=== PATIENT | male | born 1940 | race Caucasian/White ===

== ENCOUNTER → 2016-09-07 | Outpatient (CLI) | payer OTHER ==
[~2016-09-07] MED LIST: ADVIN25/60 INH; ASPCH81X PO; ASPI400T11; CALC-393 PO; GABA-113 PO; LEVO125T4 PO; PROSTAVAN; PROSTAVAN PO; TRAM-10 PO; VNTHFA/IN INH; [UNRECOGNIZED DRUG - OTHER]; calcium complete
--- NOTE | 2016-09-07 11:54 | DIAGNOSTIC IMAGING REPORT ---
RENAL ULTRASOUND CLINICAL HISTORY: Chronic renal insufficiency. COMPARISON STUDY: Renal ultrasound March 22, 2011 TECHNIQUE: Sonography of the kidneys and the urinary bladder was performed. FINDINGS: This exam is mildly compromised by suboptimal penetration. The right kidney measures 10.6 x 5.8 x 5.2 cm and the left measures 12.3 x 5.3 x 4.8 cm. There is no hydronephrosis. A few renal cysts are noted. Renal echogenicity, size and cortical thickness are normal. No calculi or solid masses are identified by sonography. Both ureteral jets were identified. IMPRESSION: 1. No hydronephrosis. 2. A few renal cysts. Otherwise, unremarkable sonographic appearance of the kidneys. 3. Study mildly compromised by suboptimal penetration. Electronically signed by: All Lopez M.D. 09/07/2016 11:53 AM Dictated Date/Time: 09/07/2016 11:51 AM
--- NOTE | 2016-09-07 12:36 | DIAGNOSTIC IMAGING REPORT ---
CERVICAL SPINE 3 VIEWS CLINICAL HISTORY: Cervical disc disease. FINDINGS: AP, lateral, and odontoid views of the cervical spine are obtained. No prior studies are available for comparison at the time of dictation. The skeletal structures are osteopenic. There is no radiographic evidence of fracture or malalignment. The odontoid process and lateral masses are intact as visualized. These are suboptimally assessed due to overlying bony structures. Vertebral body height and alignment are maintained throughout the cervical spine. There is straightening of the cervical lordosis with mild reversal centered at C5. The spinolaminar line is preserved. Anterior osteophytes are seen throughout. The spinous processes appear intact. There is moderate degenerative disc space narrowing seen at all cervical levels. Endplate sclerosis is noted at C4-C5. Degenerative narrowing and sclerosis are also seen at the atlantodental articulation. Posterior disc osteophyte complexes at C3-C4, C4-C5, C5-C6, and C6-C7 likely contribute to mild acquired compromise of the central canal. The prevertebral soft tissues are within normal limits. Partially imaged apical lung parenchyma appears clear. IMPRESSION: 1. No acute bony abnormality is seen involving the cervical spine. 2. Osteopenia and spondylotic change as above. Dictated: 09/07/2016 12:05 PM Transcribed: 09/07/2016 12:36 PM STEVE_[email or web address] Electronically signed by: Brandin Noel M.D. 09/07/2016 1:09 PM Dictated Date/Time: 09/07/2016 12:05 PM
== END | disposition home or self-care (01) ==
LOC: C.ULTR 10:32
PROVIDERS: ATTEND Nurse Practitioner
DX: N18.9 Chronic kidney disease, unspecified (principal); M85.80 Other specified disorders of bone density and structure, unspecified site; M43.10 Spondylolisthesis, site unspecified

== ENCOUNTER → 2016-10-11 | Outpatient (CLI) | payer OTHER ==
[~2016-10-11] MED LIST changes: -CALC-393 PO; -PROSTAVAN PO
[2016-10-11 09:29] LABS: PATIENT HEIGHT 177.8 cm
[2016-10-11 12:30] LABS: BASO % 0.4 %; BASO ABS # 0.03 K/uL (0-0.2); COMPLETE YES; EOS % 2.9 %; HEMATOCRIT 42.6 % (42-52); IG% 0.3 %; LYMPH % 17.5 %; LYMPH ABS # 1.38 K/uL (1.2-3.4); MEAN CELL VOLUME 96.6 fL (80-100); MEAN CORPUSCULAR HEMOGLOBIN 32.4 pg (25-34); MEAN CORPUSCULAR HGB CONC 33.6 g/dl (32-36); MEAN PLATELET VOLUME 10.6 fL (7.4-10.4); MONO % 7.4 %; NEUT % 71.5 %; PLATELET COUNT 240 K/uL (130-400); RED BLOOD COUNT 4.41 M/uL (4.7-6.1); WHITE BLOOD COUNT 7.88 K/uL (4.8-10.8)
[2016-10-11 12:50] LABS: URINE APPEARANCE CLEAR (CLEAR); URINE BILIRUBIN NEG (NEG); URINE COLOR YELLOW; URINE EPITHELIAL CELL AUTO 0-5 /lpf (0-5); URINE NITRITE NEG (NEG); URINE PH 5.5 (4.5-7.5); URINE SPECIFIC GRAVITY 1.015 (1.000-1.030); UROBILINOGEN NEG (NEG)
[2016-10-11 12:59] LABS: MANUAL MICROSCOPIC REQUIRED? NO; REVIEW REQ? NO
[2016-10-11 13:04] LABS: URINE PROTIEN/CREAT RATIO 0.1 (0-0.2); URINE TOTAL PROTEIN 9.5 mg/dl (0-11.9)
[2016-10-11 13:28] LABS: BUN/CREATININE RATIO 14.9 (10-20); CALCIUM 8.9 mg/dl (8.5-10.1); CREATININE 1.6 mg/dl (0.60-1.40); POTASSIUM 4.2 mmol/L (3.5-5.1)
[2016-10-11 13:39] LABS: ALB/GLOB RATIO 1.1 (0.9-2); CHOLESTEROL/HDL RATIO 3.2; THYROID STIMULATING HORMONE 2.57 uIu/ml (0.300-4.500)
[2016-10-11 17:59] LABS: CREATININE 1.6 mg/dl (0.6-1.4)
[2016-10-11 18:21] LABS: URINE TOTAL PROTEIN 5.2 mg/dl (0-11.9)
== END | disposition home or self-care (01) ==
LOC: C.LABBFT 08:58
PROVIDERS: ATTEND Internal Medicine Nephrology
DX: E03.9 Hypothyroidism, unspecified (principal); F17.200 Nicotine dependence, unspecified, uncomplicated; J44.9 Chronic obstructive pulmonary disease, unspecified; N18.3 Chronic kidney disease, stage 3 (moderate); M54.2 Cervicalgia

== ENCOUNTER → 2017-03-09 | Outpatient (CLI) | payer OTHER ==
[2017-03-09 12:19] LABS: HEMATOCRIT 41.1 % (42-52); MEAN CELL VOLUME 97.6 fL (80-100); MEAN CORPUSCULAR HEMOGLOBIN 32.1 pg (25-34); MEAN CORPUSCULAR HGB CONC 32.8 g/dl (32-36); MEAN PLATELET VOLUME 10.3 fL (7.4-10.4); PLATELET COUNT 244 K/uL (130-400); RED BLOOD COUNT 4.21 M/uL (4.7-6.1); WHITE BLOOD COUNT 8.58 K/uL (4.8-10.8)
[2017-03-09 12:46] LABS: BLOOD UREA NITROGEN 29 mg/dl (7-18); BUN/CREATININE RATIO 19.3 (10-20); CALCIUM 9.2 mg/dl (8.5-10.1); CARBON DIOXIDE 28 mmol/L (21-32); CHLORIDE 110 mmol/L (98-107); CHOLESTEROL 166 mg/dl (0-200); GLUCOSE 92 mg/dl (70-99); POTASSIUM 4.6 mmol/L (3.5-5.1); SODIUM 142 mmol/L (136-145); TRIGLYCERIDES 46 mg/dl (0-150); VERY LOW DENSITY LIPOPROT CALC 9 mg/dl
[2017-03-09 12:52] LABS: CHOLESTEROL/HDL RATIO 3.1; HDL CHOLESTEROL 54 mg/dl; LDL CHOLESTEROL CALCULATED 103 mg/dl; PROSTATE SPECIFIC ANTIGEN 0.805 ng/ml (0.000-4.000)
== END | disposition home or self-care (01) ==
LOC: C.LABBFT 09:51
PROVIDERS: ATTEND Nurse Practitioner
DX: M54.2 Cervicalgia (principal); N18.3 Chronic kidney disease, stage 3 (moderate); J44.9 Chronic obstructive pulmonary disease, unspecified; F17.200 Nicotine dependence, unspecified, uncomplicated; E03.9 Hypothyroidism, unspecified; Z12.5 Encounter for screening for malignant neoplasm of prostate

== ENCOUNTER → 2017-04-10 | Outpatient (CLI) | payer OTHER ==
--- NOTE | 2017-04-10 13:01 | DIAGNOSTIC IMAGING REPORT ---
BILATERAL LOWER EXTREMITY ARTERIAL DOPPLER ULTRASOUND CLINICAL HISTORY: Lower extremity claudication. Lower extremity pain. COMPARISON STUDY: No previous studies for comparison. FINDINGS: The right ankle to brachial index measured 1.01 when using posterior tibial artery and 0.96 when using the dorsalis pedis. The left ankle to brachial index measured 1.04 when using posterior tibial artery and 0.98 when using the dorsalis pedis. There is triphasic flow within the bilateral common and superficial femoral arteries. There is biphasic flow within the bilateral popliteal, anterior tibial, posterior tibial, peroneal and dorsalis pedis vessels. There is no evidence for hemodynamically significant stenosis. Minimal atherosclerotic plaque is noted. IMPRESSION: 1. Unremarkable bilateral lower extremity arterial Doppler ultrasound. No evidence of a hemodynamically significant stenosis. 2. Normal bilateral ankle to brachial indices. Electronically signed by: All Lopez M.D. 04/10/2017 1:00 PM Dictated Date/Time: 04/10/2017 12:55 PM
== END | disposition home or self-care (01) ==
LOC: C.ULTR 11:43
PROVIDERS: ATTEND Physician Assistant
DX: I73.9 Peripheral vascular disease, unspecified (principal)

== ENCOUNTER → 2017-10-09 | Outpatient (CLI) | payer OTHER ==
[~2017-10-09] MED LIST changes: +GABA-1220 PO; -LEVO125T4 PO; +LEVO125T5 PO; +VITBC PO
--- NOTE | 2017-10-09 12:22 | DIAGNOSTIC IMAGING REPORT ---
LUNG SCREENING, LOW DOSE CLINICAL HISTORY: Tobacco history dyspnea COMPARISON STUDY: No previous studies for comparison. CT DOSE: 92.50 mGy.cm TECHNIQUE: Low-dose helical CT was acquired without intravenous contrast from lung apices to bases and reconstructed at 2.5 mm every 2 mm. CAD was utilized for this study. A dose lowering technique was utilized adhering to the principles of ALARA. FINDINGS: Mild emphysematous change mild bibasilar atelectasis. No significant nodularity. No significant mediastinal or hilar adenopathy. IMPRESSION: Mild emphysematous change. Otherwise negative study.[facility] CAD FINDINGS: Overall Lung RADS Category: 1 Lung RADS Management Recommendation: Continue annual lung cancer screening. Lung RADS Follow Up Date: 2018-10-09 Lung RADS Nodule ID: The above report was generated using voice recognition software. It may contain grammatical, syntax or spelling errors. Electronically signed by: Armand Bain M.D. 10/09/2017 12:20 PM Dictated Date/Time: 10/09/2017 12:15 PM
== END | disposition home or self-care (01) ==
LOC: C.CTS 11:32
PROVIDERS: ATTEND Nurse Practitioner
DX: Z87.891 Personal history of nicotine dependence (principal); F17.210 Nicotine dependence, cigarettes, uncomplicated

== ENCOUNTER → 2017-11-15 | Outpatient (CLI) | payer OTHER ==
[2017-11-16 14:40] LABS: ANA SCREEN TC 249X NEGATIVE (NEGATIVE)
== END | disposition home or self-care (01) ==
LOC: C.LABBFT 07:34
PROVIDERS: ATTEND Nurse Practitioner
DX: M25.40 Effusion, unspecified joint (principal)

== ENCOUNTER → 2017-11-23 | Outpatient (CLI) | payer OTHER ==
--- NOTE | 2017-11-23 15:55 | DIAGNOSTIC IMAGING REPORT ---
R HAND MIN 3 VIEWS ROUTINE, L HAND MIN 3 VIEWS ROUTINE HISTORY: 77 years-old Male R70.0 Elevated sedimentation rateBoth COMPARISON: None available TECHNIQUE: 3 views of the bilateral hands for a total of 6 images FINDINGS: RIGHT: Mild radiocarpal, triscaphe and first carpometacarpal osteoarthritis. 3 mm negative ulnar variance. Mild joint space narrowing with subchondral sclerosis and marginal osteophytosis is seen throughout the interphalangeal joints to lesser extent within the metacarpophalangeal joints. The bones are mildly demineralized. No erosive changes identified. No acute fracture or dislocation. LEFT: No acute fracture or dislocation. The scapholunate interval is widened, 5 mm. 4 mm negative ulnar variance. Mild to moderate radiocarpal, first carpometacarpal and first metacarpophalangeal osteoarthritis with mild triscaphe and mild multidigit interphalangeal degenerative changes. No erosive arthropathy, acute fracture or subluxation. IMPRESSION: 1. No acute fracture or dislocation. 2. No evidence of erosive arthropathy. 3. Osteoarthritis of the bilateral hands as above. 4. Widening of the left scapholunate interval compatible with scapholunate ligament tear. The above report was generated using voice recognition software. It may contain grammatical, syntax or spelling errors. Electronically signed by: Donell Duran M.D. 11/23/2017 3:53 PM Dictated Date/Time: 11/23/2017 3:50 PM
== END | disposition home or self-care (01) ==
LOC: C.RAD1850 15:02
PROVIDERS: ATTEND Internal Medicine Rheumatology
DX: R70.0 Elevated erythrocyte sedimentation rate (principal); G62.9 Polyneuropathy, unspecified; M19.042 Primary osteoarthritis, left hand; M19.041 Primary osteoarthritis, right hand

== ENCOUNTER → 2017-11-28 | Outpatient (CLI) | payer OTHER | END | disposition home or self-care (01) | LOC: C.LAB1850 14:11 | PROVIDERS: ATTEND Internal Medicine Rheumatology | DX: G62.9 Polyneuropathy, unspecified (principal); R70.0 Elevated erythrocyte sedimentation rate; M35.3 Polymyalgia rheumatica ==

== ENCOUNTER → 2018-02-19 | Outpatient (CLI) | payer OTHER ==
[~2018-02-19] MED LIST changes: -ASPI400T11; +ASPI400T11 PO; +PRED10TA PO; +PRLSR20 PO; -TRAM-10 PO
== END | disposition home or self-care (01) ==
LOC: C.LAB1850 16:07
PROVIDERS: ATTEND Internal Medicine Rheumatology
DX: K21.9 Gastro-esophageal reflux disease without esophagitis (principal); R70.0 Elevated erythrocyte sedimentation rate; M35.3 Polymyalgia rheumatica; M06.4 Inflammatory polyarthropathy

== ENCOUNTER → 2018-03-16 | Outpatient (CLI) | payer OTHER ==
[2018-03-16 13:53] LABS: BLOOD UREA NITROGEN 30 mg/dl (7-18); CALCIUM 9.2 mg/dl (8.5-10.1); CARBON DIOXIDE 30 mmol/L (21-32); CHOLESTEROL 171 mg/dl (0-200); CREATININE 1.75 mg/dl (0.60-1.40); GLUCOSE 85 mg/dl (70-99); LDL CHOLESTEROL CALCULATED 81 mg/dl; POTASSIUM 4.1 mmol/L (3.5-5.1); SODIUM 142 mmol/L (136-145)
== END | disposition home or self-care (01) ==
LOC: C.LABBFT 08:02
PROVIDERS: ATTEND Nurse Practitioner
DX: I10 Essential (primary) hypertension (principal); E03.9 Hypothyroidism, unspecified; Z12.5 Encounter for screening for malignant neoplasm of prostate; M81.8 Other osteoporosis without current pathological fracture; E55.9 Vitamin D deficiency, unspecified

== ENCOUNTER 2022-12-26 06:21 | Observation (INO) ==
--- NOTE | 2022-11-24 12:23 | PAT Medication Instructions ---
Medication Instructions Date of Service November 24, 2022 Home Medications Medication Instructions Recorded furosemide 20 mg tablet (Lasix) 20 mg PO Q2D #45 tabs 10/16/20 omeprazole 20 mg capsule,delayed 20 mg PO TID #270 caps 10/28/21 release levothyroxine 125 mcg tablet 125 mcg PO QAM #96 tabs 04/27/22 gabapentin 600 mg tablet 600 mg PO .qhs #90 tabs 09/27/22 gabapentin 300 mg capsule 300 mg PO BID #180 caps 11/16/22 calcium carbonate 600 mg calcium (1,500 mg) tablet 600 mg PO QDL coenzyme Q10 100 mg capsule (CoQ-10) 200 mg PO QDL ferrous sulfate 325 mg (65 mg iron) tablet,delayed release 325 mg PO 3XWK Cell Hodge 1 tab PO QDL cholecalciferol (vitamin D3) 25 mcg (1,000 unit) capsule (Vitamin D3) 1,000 unit PO QDL docusate sodium 100 mg capsule 100 mg PO QDL PRN Constipation vitamin B complex 1 tab PO QDL furosemide 20 mg tablet (Lasix) 20 mg PO Q2D omeprazole 20 mg capsule,delayed release 20 mg PO TID levothyroxine 125 mcg tablet 125 mcg PO QAM gabapentin 600 mg tablet 600 mg PO .qhs gabapentin 300 mg capsule 300 mg PO BID atorvastatin 20 mg tablet 20 mg PO QDL fluticasone fur. 100 mcg-umeclid 62.5 mcg-vilant 25 mcg inhalat.powder (Trelegy Ellipta) 1 inh inhalation QAM meloxicam 7.5 mg tablet 7.5 mg PO QAM metoprolol succinate 25 mg tablet,extended release 24 hr 25 mg PO QDL tamsulosin 0.4 mg capsule 0.8 mg PO HS ASK your surgeon for instructions meloxicam 7.5 mg tablet 7.5 mg PO QAM STOP taking 2 weeks before surgery coenzyme Q10 100 mg capsule (CoQ-10) 200 mg PO QDL Cell Hodge 1 tab PO QDL DO NOT take the morning of surgery calcium carbonate 600 mg calcium (1,500 mg) tablet 600 mg PO QDL ferrous sulfate 325 mg (65 mg iron) tablet,delayed release 325 mg PO 3XWK cholecalciferol (vitamin D3) 25 mcg (1,000 unit) capsule (Vitamin D3) 1,000 unit PO QDL docusate sodium 100 mg capsule 100 mg PO QDL PRN Constipation (if needed) vitamin B complex 1 tab PO QDL furosemide 20 mg tablet (Lasix) 20 mg PO Q2D atorvastatin 20 mg tablet 20 mg PO QDL Take morning of surgery With a small sip of water, OTHERWISE NOTHING TO EAT OR DRINK AFTER MIDNIGHT: omeprazole 20 mg capsule,delayed release 20 mg PO TID levothyroxine 125 mcg tablet 125 mcg PO QAM gabapentin 300 mg capsule 300 mg PO BID fluticasone fur. 100 mcg-umeclid 62.5 mcg-vilant 25 mcg inhalat.powder (Trelegy Ellipta) 1 inh inhalation QAM metoprolol succinate 25 mg tablet,extended release 24 hr 25 mg PO QDL Take evening before surgery omeprazole 20 mg capsule,delayed release 20 mg PO TID gabapentin 600 mg tablet 600 mg PO .qhs gabapentin 300 mg capsule 300 mg PO BID tamsulosin 0.4 mg capsule 0.8 mg PO HS Other Notes If you have any questions please call us at [phone] or [phone] or [phone] or [phone]
--- NOTE | 2022-11-29 11:57 | Anesthesiology Consultation ---
Date of Service November 29, 2022 Assessment & Plan (1) Encounter for pre-operative examination: - K 5.3, Cr elevation (known CKD III): awaiting PCP response to workload note. - cardiology 06/24/22 [place]: "...Thoracic ascending aortic aneurysm...ascending thoracic aortic aneurysm...evidence of a stable ascending aortic aneurysm measuring 4.5 cm on chest imaging since 2018. Most recent CT was 2 months ago. He is asymptomatic. Reviewed diagnosis and monitoring in detail. Reassuring that aneurysm has been stable over the past 4 years. Will plan to check echocardiogram to evaluate for valvular heart disease and see if we can visualize his aneurysm. If so this could be monitored with periodic echos in the future..." - pulmonology 06/21/22 [place]: "...COPD (chronic obstructive pulmonary disease) with chronic bronchitis...No signs of exacerbation at present. Continue Trelegy and as needed albuterol. RSV (acute bronchiolitis due to respiratory syncytial virus): Appears to be recovering well from his illness. Continue supportive measures. Abnormal CT scan, chest...Improvement in the groundglass opacities seen. He does have an ascending thoracic aortic aneurysm. I am not managing this. I will refer him to cardiology. Thoracic ascending aortic aneurysm..." - Outpatient joint assessment: Patient is currently scheduled for inpatient pathway. If re-evaluated pending system levels during current pandemic/surgeon requests outpatient pathway, patient is not acceptable candidate for outpatient joint program from anesthesia standpoint. Chart Review Chart Review: Pending: Refer to Additional Notes / Consult section and Patient seen in Pre Admission Testing Teaching & Discussion Pre-Anesthesia Teaching/Discussion Notes: Instructed NPO after midnight before surgery, except medications with 15 cc of water. Medication instructions provided according to the PAT guidelines. History Surgery Operation Date: 12/26/22 09:20 Proposed Procedures p Right Total Knee Arthroplasty - Billy Beebe, Height/Weight Height: 5 ft 9.5 in Weight: 92.986 kg Allergies Allergy/AdvReac Type Severity Reaction Status Date / Time amoxicillin AdvReac Mild GI SYMPTOMS Verified 11/18/22 13:30 clavulanic acid AdvReac Mild GI SYMPTOMS Verified 11/18/22 13:30 nicotine patch Allergy Mild Rash Uncoded 11/18/22 13:30 Medications Home Medications Medication Instructions Recorded Confirmed Last Taken calcium carbonate 600 mg calcium 600 mg PO QDL 12/13/18 11/18/22 09/08/20 (1,500 mg) tablet coenzyme Q10 100 mg capsule 200 mg PO QDL 02/25/20 11/18/22 09/09/20 (CoQ-10) ferrous sulfate 325 mg (65 mg 325 mg PO 3XWK 03/10/20 11/18/22 09/09/20 iron) tablet,delayed release Cell Hodge 1 tab PO QDL 09/04/20 11/18/22 09/09/20 cholecalciferol (vitamin D3) 25 1,000 unit PO QDL 09/04/20 11/18/22 09/09/20 mcg (1,000 unit) capsule (Vitamin D3) docusate sodium 100 mg capsule 100 mg PO QDL PRN Constipation 09/04/20 11/18/22 09/09/20 vitamin B complex 1 tab PO QDL 09/04/20 11/18/22 09/09/20 08:00 furosemide 20 mg tablet (Lasix) 20 mg PO Q2D #45 tabs 10/16/20 11/18/22 Unknown omeprazole 20 mg capsule,delayed 20 mg PO TID #270 caps 10/28/21 11/18/22 Unknown release levothyroxine 125 mcg tablet 125 mcg PO QAM #96 tabs 04/27/22 11/18/22 Unknown gabapentin 600 mg tablet 600 mg PO .qhs #90 tabs 09/27/22 11/18/22 Unknown gabapentin 300 mg capsule 300 mg PO BID #180 caps 11/16/22 11/18/22 Unknown atorvastatin 20 mg tablet 20 mg PO QDL 11/18/22 11/18/22 Unknown fluticasone fur. 100 mcg-umeclid 1 inh inhalation QAM 11/18/22 11/18/22 Unknown 62.5 mcg-vilant 25 mcg inhalat.powder (Trelegy Ellipta) meloxicam 7.5 mg tablet 7.5 mg PO QAM 11/18/22 11/18/22 Unknown metoprolol succinate 25 mg 25 mg PO QDL 11/18/22 11/18/22 Unknown tablet,extended release 24 hr tamsulosin 0.4 mg capsule 0.8 mg PO HS 11/18/22 11/18/22 Unknown diclofenac sodium 1 % topical gel topical PRN Pain 11/29/22 Unknown Past Medical History Medical History (Updated 11/29/22 @ 12:20 by Adilene Madden PA-C) Aneurysm artery, superior mesenteric Follows with Dr Damon ([facility]), max diameter 1.2 x 1.3 cm-per [facility] vascular 03/2022 does not need further monitor or f/u Chronic diastolic heart failure EF 55-60% 07/2022 echo Chronic kidney disease (CKD), stage III (moderate) Chronic low back pain COPD (chronic obstructive pulmonary disease) well controlled, stable-denies needing rescue inhaler Diverticulosis Emphysema lung Gastroesophageal reflux disease without esophagitis controlled, stable per pt Hiatal hernia History of COVID-11 July 2020 and covid pneumonia. no hospitalization; treated at home. Hyperlipidemia Hypertension controlled, stable per pt Hypothyroidism Multilevel degenerative disc disease Peripheral neuropathy bilateral legs Polymyalgia rheumatica Polyneuropathy RSV (acute bronchiolitis due to respiratory syncytial virus) hx - Fall 2021 Thoracic aortic aneurysm 4.5 cm 04/[address] Patient denies h/o stroke, seizures, heart attack, DM, or blood transfusions. Exercise / Class Metabolic Activity II 4-5 Yardwork/Stairs/Walk up hill (denies chest discomfort or shortness of breath with 1 FOS) Past Family History Family History Father Prostate cancer Testicular cancer Cancer Mother Cancer Hypertension Unknown Diabetes Grandfather Colorectal cancer Other No family history of adverse response to anesthesia No family history of bleeding disorder Denies family history of Ovarian cancer Myocardial infarction Breast cancer Past Surgical History Surgical History History of cataract surgery bilateral History of colonoscopy History of esophagogastroduodenoscopy (EGD) History of selective injection of anesthetic agent around lumbar nerve root lumbar nerve ablation History of tonsillectomy S/P epidural steroid injection follows with Dr Rousseau Past Anesthesia History No Hx of Anesthesia Complications and No Family Hx of Anesthesia Complications History of PONV No Hx of PONV and No Hx of Motion Sickness Social History Smoking Status: Former smoker tobacco type: cigarettes and pipe Do You Dip or Chew Tobacco: No Smoking End Date: 2019 Hx Alcohol Use: No Hx Substance Use: No Review of Systems Snoring, denies witnessed apneas. Chronic cough ongoing x yrs, occasionally productive; denies change or worsening. Patient denies chest pain, shortness of breath, dyspnea on exertion, fever, chills, wheezing, or palpitations. Physical Exam Vital Signs Vitals BP 151/79 P 69 TEMP 98.3 SP02 94% on RA RESP 17 Physical Full cervical extension range of motion without pain TMD 3.5 finger breadths Mallampati Score 3 Dentition: intact, denies chipped or loose teeth, caps/crowns, implants or bridges Lungs: normal respiratory effort. Clear throughout to auscultation, no adventitious breath sounds Cardiac: regular rate and rhythm, no murmurs noted Carotid arteries: negative bruit bilat Lab Results Anesthesia Preop Results Results Anesthesia Widget: WBC 8.18 K/ul (4.8-10.8) 11/29/22 Hgb 13.9 g/dl (14.0-18.0) L 11/29/22 Hct 42.1 % (42.0-52.0) 11/29/22 Plt 209 K/uL (130-400) 11/29/22 Na 140 mmol/L (136-145) 11/30/22 K 4.0 mmol/L (3.5-5.1) 11/30/22 Cl 105 mmol/L (98-107) 11/30/22 CO2 26 mmol/L (21-32) 11/30/22 BUN 30 mg/dl (6-23) H 11/30/22 Creat 1.84 mg/dl (0.6-1.4) H 11/30/22 Glucose Level 102 mg/dl (70-99(Fasting)) H 11/30/22 PT 11.6 Seconds (9.0-12.0) 11/29/22 PTT 30.4 Seconds (21.0-31.0) 11/29/22 INR 1.1 (0.9-1.1) 11/29/22 TSH 0.593 uIu/ml (0.300-4.500) 10/18/22 Blood Type O Positive 11/29/22 Antibody Screen NEGATIVE 11/29/22 Testing Electrocardiogram Date: 11/29/22 NSR, rate 69 bpm Echocardiogram Date: 08/09/22 EF 55-60% No regional wall motion abnormalities Moderate cLVH Mild to moderate aortic regurgitation Mild mitral regurgitation Moderate aortic root dilatation Mildly dilated ascending aorta Other Testing Chest CT 05/20/22 1. Mild emphysema without acute intrathoracic abnormality. 2. Mildly improved aeration of the lung bases. Persistent groundglass and linear consolidative opacities suggestive of postinflammatory scarring with atelectasis. 3. No lymphadenopathy. 4. Aneurysmal dilation of the ascending thoracic aorta, 4.5 cm. Mesenteric/celiac arterial duplex 04/01/22 Widely patent celiac artery Widely patent superior mesenteric artery. The mesenteric artery has a maximum diameter measurement of 1.2 by 1.3 cm. COVID-19 Risk Screen Screening Information COVID-19 Screen Date: 11/29/22 Exposure 21 Days Family/Household +COVID Last 21 Days: No Exposure 10 Days Any COVID Exposure Last 10 Days: No Symptoms Last 10 Days Experienced COVID Sx Last 10 Days: No + COVID 0-90 Days COVID + in Last 0-90 Days: No
[~2022-12-26 06:21] MED LIST changes: +ACETAMINOPHEN 500 MG TAB PO SCH; -ADVIN25/60 INH; -ASPCH81X PO; -ASPI400T11 PO; +FAMOTIDINE 20 MG TAB PO SCH; -GABA-113 PO; -GABA-1220 PO; +GABAPENTIN 300 MG CAP PO SCH; -LEVO125T5 PO; +LR 60ML/HR IV SCH; +ORTHO JOINT MIX INFIL SCH; -PRED10TA PO; -PRLSR20 PO; -PROSTAVAN; +TRANEXAMIC ACID 1,000 MG **IV Intra-op IV SCH; +TRANEXAMIC ACID 1,000 MG **IV Pre-op IV SCH; -VITBC PO; -VNTHFA/IN INH; -[UNRECOGNIZED DRUG - OTHER]; -calcium complete; +ceFAZolin 2000MG 2,000 MG/15 ML SYR IV SCH; +dexAMETHasone 4 MG TAB PO SCH
[2022-12-26] MEDS ORDERED: ROPIVACAINE 0.5% 5 MG/ML 30 ML VIAL ONE (06:25)
[2022-12-26] MEDS ORDERED: BUPIVACAINE 0.5 % 5 MG/1 ML PF 10ML VIAL ONE (06:25)
[2022-12-26] MEDS ORDERED: ePHEDrine sulfate 50 MG/ML AMP IV PRN (08:16)
[2022-12-26] MEDS ORDERED: fentaNYL citrate PF 100 MCG/2 ML VIAL IV PRN (08:16)
[2022-12-26] MEDS ORDERED: ATROPINE SULFATE 0.1 MG/ML 10ML SYR IV PRN (08:16)
[2022-12-26] MEDS ORDERED: ONDANSETRON INJ 2 MG/ML 2 ML VIAL IV PRN ×2 (08:16→12:03)
--- NOTE | 2022-12-26 08:21 | History & Physical Bridge Note ---
Date of Service December 26, 2022 History & Physical Bridge Note I have examined the patient, reviewed the History & Physical and in the interval since the performance of the History & Physical I have noted the following changes of clinical significance: no changes noted
[2022-12-26] MEDS ORDERED: PROPOFOL IV EMULSION 10 MG/ML 20 ML VIAL IV ONE ×2 (08:49→08:53)
[2022-12-26] MEDS ORDERED: ONDANSETRON INJ 2 MG/ML 2 ML VIAL ONE (08:49)
[2022-12-26] MEDS ORDERED: LIDOCAINE 2% 2 ML VIAL/AMP(20MG/ML) INFIL ONE (08:49)
[2022-12-26] MEDS ORDERED: fentaNYL citrate PF 100 MCG/2 ML VIAL ONE (08:50)
[2022-12-26] MEDS ORDERED: MIDAZOLAM HCL 1 MG/ML 2ML VIAL ONE (08:50)
[2022-12-26] MEDS ORDERED: ORTHO JOINT ANESTHETIC ONE (09:03)
--- NOTE | 2022-12-26 10:37 | Operative Report ---
PG Post Operative Report Pre & Post Diagnosis Operation Date: 12/26/22 09:00 Pre-Op Diagnosis: Dengenerative Joint Disease Right Knee Post-Op Diagnosis: Dengenerative Joint Disease Right Knee I identified the patient and participated in the time-out.: Yes Procedure Operation Date: 12/26/22 09:00 Actual Procedures p Right Total Knee Arthroplasty(Right) - Billy Beebe DO Surgeon Billy Beebe DO Hris Administrator Billy Martinez PA-C Estimated Blood Loss 30 Findings Consistent with Post-Op Diagnosis Specimens Right femoral and tibial bone Description of Procedure Implants used: I used a Sharon Persona total knee arthroplasty system with a size 7 standard femur, F tibia, 28 oval patella, and a size 12 medial congruent polyethylene bearing. All components were cemented in place with Biomet cement. Shad arrived [facility] for the above procedure. He was seen in the preoperative holding area and the operative extremity was identified and signed. He was given a preoperative antibiotic, TXA, a spinal anesthetic and an adductor nerve block. He was taken back to the operating room and laid on the table in supine position. He was given basic sedation. The operative knee was then prepped and draped in sterile fashion. A timeout was done, and the patient and the operative extremity was properly identified. A midline incision was made directly over the patella. Dissection was taken down to the extensor mechanism. A midvastus arthrotomy was used. The medial retinaculum was released and the fat pad was mostly excised. The knee was flexed and the ACL, PCL, and meniscus were removed. A drill was sent down the center of the femoral canal followed by an intramedullary elio. Off that elio a distal femoral cutting block was placed. 9 mm was resected off the distal femur at 5 of valgus. A posterior referencing AP sizing guide was then placed on the distal femur. The femur measured to be a size 7. 2 drill holes were placed in 3 of external rotation. A 4-in-1 cutting block was then impacted into place. Anterior, posterior, and chamfer cuts were then made. The proximal tibia was then exposed. An external tibial alignment guide was placed. A tibial cut guide was then anchored in place and the proximal tibia was then resected. The posterior aspect of the knee was then opened up and any additional meniscus fragments and osteophytes were removed. The tibia measured to be a size F. The tibial plate was then placed in the appropriate rotation and the tibia was drilled and punched. Trial components were then placed. I used a size 12 medial congruent 28 oval polyethylene insert. The knee was brought through a full range of motion and felt to be stable. The peg holes for the femoral component were then drilled. The patella was then everted and 9 mm was resected off the posterior aspect of the patella. The patella measured to be a size 28 oval. 3 peg holes were then drilled. A trial patella was placed. The knee was once again brought through a full range of motion and felt to be stable. Trial components were then removed. The surrounding soft tissues were injected with 100 cc of an orthopedic pain control cocktail. All components were then cemented into place with Biomet cement. The final polyethylene insert was then snapped into place. Once cement was dry the tourniquet was deflated. Hemostasis was obtained. A dilute betadyne lavage was then done for 3 minutes. The joint was then irrigated with normal saline solution. The midvastus arthrotomy was then closed with #1 Vicryl suture. The skin was closed with 2-0 Vicryl, 3-0V lock suture, and juan. A soft compressive dressing was placed. He was then transferred to a hospital bed and taken to the postanesthesia care unit in stable condition. He tolerated the procedure well. Billy Martinez PA-C, was present for the entire procedure. He was critical for patient positioning, prepping, draping, retraction exposure, wound closure and application of sterile dressing. I attest to the content of the Intraoperative Record and any orders documented therein. Any exceptions are noted below.
--- NOTE | 2022-12-26 11:54 | XRay Report ---
XR knee RT 1 or 2V routine CLINICAL HISTORY: Surgical Post Op TECHNIQUE: 2 views of the right knee were obtained. Comparison: Comparison is made to right knee radiographs 01/23/2018 FINDINGS: Patient is status post total knee arthroplasty with expected postsurgical changes including soft tiss ue swelling and subcutaneous emphysema. No periarticular lucency or hardware fracture is seen. IMPRESSION: Expected postoperative appearance status post placement of total knee arthroplasty. ACT 112: Negative or not required by law. Electronically signed by: Neil Santana M.D. 12/26/2022 11:53 AM
[2022-12-26] MEDS: SODIUM CHLORIDE 0.9% 1000ML 1,000 ML IV SCH ×2 (11:55→23:26)
[2022-12-26] MEDS ORDERED: METOCLOPRAMIDE HCL INJ 5 MG/ML 2 ML VIAL IV PRN (12:03)
[2022-12-26] MEDS ORDERED: HYDROmorphone INJ 0.5 MG/0.5 ML SYR IV PRN (12:03)
[2022-12-26] MEDS ORDERED: bisacodyL 10 MG SUPP PR PRN (12:03)
[2022-12-26] MEDS ORDERED: MAGNESIUM HYDROXIDE SUSP 30 ML UDC PO PRN (12:03)
[2022-12-26] MEDS ORDERED: NALOXONE HCL 0.4 MG/1 ML VIAL/CARP IV PRN (12:03)
[2022-12-26] MEDS ORDERED: oxyCODONE HCL IR 5 MG TAB (IMMEDIATE RELEASE) PO PRN (12:03)
--- NOTE | 2022-12-26 12:26 | Anesthesiology Progress Note ---
Date of Service December 26, 2022 Anesthesia Post Procedure Vital Signs Vital Signs: Temp Pulse Pulse Pulse Resp BP Pulse Ox 12/26/22 12:20 98.6 F 68 16 139/75 93 12/26/22 11:50 12/26/22 11:50 97.9 F 67 18 146/87 H 93 12/26/22 11:35 97.3 F L 66 13 134/72 94 12/26/22 11:25 68 17 128/70 95 12/26/22 11:15 68 15 131/67 95 12/26/22 11:05 68 19 126/63 97 12/26/22 10:59 97.9 F 68 12 129/65 95 12/26/22 06:56 12/26/22 06:56 97.9 F 72 21 166/83 H 95 O2 Del Method 12/26/22 12:20 Room Air 12/26/22 11:50 Room Air 12/26/22 11:50 Room Air 12/26/22 11:35 Room Air 12/26/22 11:25 Room Air 12/26/22 11:15 Room Air 12/26/22 11:05 Room Air 12/26/22 10:59 Room Air 12/26/22 06:56 Room Air 12/26/22 06:56 Room Air Pain Intensity Right Knee: Pain Intensity: 3 Transfer of Care Handoff Completed per policy Notes Mental Status: alert / awake / arousable and participated in evaluation Patient Amnestic to Procedure: Yes Nausea / Vomiting: adequately controlled Pain: adequately controlled Airway Patency, RR, SpO2: stable & adequate BP & HR: stable & adequate Hydration State: stable & adequate Neuraxial Anesthesia: was administered and sensory block is resolving Anesthetic Complications: no major complications apparent and Pt Satisfied with anesthetic care
[2022-12-26] MEDS ORDERED: FERROUS SULFATE 325 MG TAB PO SCH (12:30)
[2022-12-26] MEDS: GABAPENTIN 300 MG CAP PO SCH (13:51)
[2022-12-26] MEDS: ACETAMINOPHEN 500 MG TAB PO SCH ×2 (13:51→21:04)
[2022-12-26] MEDS: ceFAZolin 2000MG 2,000 MG/15 ML SYR IV SCH (16:48)
[2022-12-26] MEDS: DOCUSATE SODIUM 100 MG CAP PO SCH (19:48)
[2022-12-26] MEDS: ASPIRIN 81 MG ECTAB PO SCH (19:48)
[2022-12-26] MEDS ORDERED: SENNA 8.6 MG TAB PO SCH (21:00)
[2022-12-26] MEDS ORDERED: GABAPENTIN 600 MG TAB PO SCH (21:00)
[2022-12-26] MEDS ORDERED: TAMSULOSIN HCL 0.4 MG CAP PO SCH (21:00)
[2022-12-27] MEDS: ceFAZolin 2000MG 2,000 MG/15 ML SYR IV SCH (00:19)
[2022-12-27] MEDS: ACETAMINOPHEN 500 MG TAB PO SCH (05:16)
[2022-12-27] MEDS ORDERED: PNEUMOCOCCAL POLYSACCHARIDES 25 MCG/0.5 ML VIAL/SYR IM ONE (06:00)
[2022-12-27] MEDS ORDERED: LEVOTHYROXINE SODIUM 125 MCG TABLET PO SCH (06:30)
--- NOTE | 2022-12-27 07:12 | Orthopedic Progress Note ---
Date of Service December 27, 2022 Assessment & Plan (1) Status post right knee replacement: Overall he is doing very well. Is not having much pain in the right knee. He is on aspirin for DVT prophylaxis. He will be seen by physical therapy today for ambulation and range of motion exercises. He can be discharged home later today. He will follow-up with orthopedics in 2 weeks. José Kulkarni was seen and examined at bedside this morning. Overall is doing very well. He is not having much pain in his right knee. He has been up and ambulating to the bathroom. Has no complaints.. Review of Systems All systems reviewed & are unremarkable except as noted in HPI & below. Physical Exam On physical examination of the right knee, the dressing is clean and dry. His leg is out full extension. He has active dorsiflexion plantarflexion of his right ankle.. Results & Data Results & Data Laboratory Results . Diagnostic Findings Postoperative x-rays of the right knee show the prosthesis to be in anatomic alignment without any evidence of fracture, screws, or loosening.. PG Care Time/CCT Total # of Minutes Spent Total Time Spent with Patient: Total time spent is greater than 50% in coordination of care (as documented) at patient's floor/unit and/or counseling patient: Coding Level of Care Code 43849 Post Operative Follow-Up Diagnoses Status post right knee replacement Z96.651
--- NOTE | 2022-12-27 07:15 | Discharge Summary ---
Date of Service December 27, 2022 Principal Diagnosis Same as "Discharge Diagnosis" noted below under Discharge Instructions. Discharge Exam On physical examination of the right knee, the dressing is clean and dry. His leg is out full extension. He has active dorsiflexion plantarflexion of his right ankle.. Discharge Data Procedures Performed Operation Date: 12/26/22 09:00 Actual Procedures p Right Total Knee Arthroplasty(Right) - Billy Beebe DO Ordered Studies 12/26/22 05:00 US - OR guided needle placemen Routine Hospital Course (1) Status post right knee replacement: On December 26, 2022 Shad arrived to [facility] and underwent a right knee replaced without complication. He had a spinal anesthetic. Postoperatively he was started on aspirin for DVT prophylaxis and transferred to the general orthopedic floors. His hospital course was uneventful. On postop day #1, his vital signs were stable and his pain was well controlled. He was able to participate well with physical therapy doing ambulation and range of motion exercises. He was then discharged home. He will follow-up with orthopedics in 2 weeks. PG Care Time/CCT Total # of Minutes Spent Total Time Spent with Patient: Total time spent is greater than 50% in coordination of care (as documented) at patient's floor/unit and/or counseling patient: Discharge Plan Discharge Items Patient Disposition: Home - Home Health Services Reason For Visit: DJD Right Knee Discharge Diagnosis: Right knee replacement Activity: Per Instructions section Non-emergency contact: Surgeon Call non-emergency contact if: your wound has increased redness and your wound has increased drainage Follow-up/Referrals: Anna Sahu CRNP [Primary Care Provider] - Diet: Regular Addtl Attending Provider Instructions: Activity and Therapy Recommendations: * If you are using [facility] then therapy will be provided at your home until they feel you have accomplished all of your goals. * If you are using [facility] then Physical Therapy will be provided until they feel you are ready to start Outpatient Physical Therapy. * If you are not using home therapy then Outpatient Physical Therapy should start about 3-5 days from your day of surgery. Therapy will last about 6-10 weeks * It is important not to put a pillow under your knee when you are relaxing or sleeping. It is just as important to make sure you are getting your knee perfectly straight as it is to regain your knee bend. * You were shown a series of exercises in the hospital. Do these exercises three times each day including the exercises you were shown in physical therapy. * Get up and walk several times each day. For the first four weeks, try not to stand or walk for more than one hour at a time. If you do stand or walk for more than one hour, you will not hurt anything, but your leg will likely swell. * As you feel comfortable, you may change from the walker or crutches to a cane and then to independent walking. Medications: * Narcotic You will likely be sent home from the hospital with a prescription for the narcotic pain medication that worked best throughout your stay. * Aspirin Most patients will be required to take Aspirin 81mg twice a day for 6 weeks after surgery. This is obtained [id number] and a prescription is not necessary. * Other medications may be prescribed for specific circumstances. If you have any questions, please call the office at . * Resume previous home medications unless otherwise instructed TEDs/Elastic Stockings: The white elastic stockings help limit swelling and prevent blood clots from forming in your legs.~ The more you wear them, the more they work. Wear them for six weeks. Dressing Care: The dressing can be changed after physical therapy on postop day #1. Daily dry dressing changes for a few days, especially if the incision is still draining some. If the incision is not draining then you may leave the juan open to air. If there is a little bit of drainage or if the juan are getting stuck on your clothing then cover the incision with a dry dressing. The juan will be removed at your 2 week follow-up appointment. Showering: You may shower 5 days from the day of surgery as long as the incision is no longer draining. You may shower with the juan exposed. Let soapy water run over the juan and pat them dry. Do not scrub or soak the incision. Things To Watch For: * Drainage from the incision site that occurs more than one week after your surgery. * Increased redness at the incision site. * Fever above 102 degrees Fahrenheit. * Unusual chest pain or shortness of breath. * Call [facility] at with any of the above probl ems Follow-Up Visit: Follow-up with Dr. Beebe's PA (Billy Martinez) 2-3 weeks after your day of surgery. He will remove your juan and answer any questions. If you have any additional questions or concerns, Dr Beebe is usually in the office at the same time and will be available An appointment was probably scheduled when you signed-up for surgery in the office. If you have any questions call Office Instructions: More detailed instructions as well as Frequently Asked Questions were provided in a folder by our office when you signed-up for surgery. Please review these instructions when you get home. If you have any further questions or concerns, please feel free to call the office at [phone] Pending Studies at Discharge: No Stand-Alone Forms: My [facility] Transportation Services, Smoking Cessation Medications and DC Order Prescriptions: New oxycodone-acetaminophen 5-325 mg tablet 1 tab PO Q6H PRN (Reason: pain) Qty: 30 0RF Continued gabapentin 600 mg tablet 600 mg PO .qhs Qty: 90 1RF furosemide [Lasix] 20 mg tablet 20 mg PO Q2D Qty: 45 3RF gabapentin 300 mg capsule 300 mg PO BID Qty: 180 1RF Rx Instructions: QAM and 1200 atorvastatin 20 mg tablet 20 mg PO DAILY Qty: 90 3RF metoprolol succinate 25 mg tablet extended release 24 hr 25 mg PO DAILY Qty: 90 3RF omeprazole 20 mg capsule,delayed release(DR/EC) 20 mg PO TID Qty: 270 3RF calcium carbonate 600 mg calcium (1,500 mg) tablet 600 mg PO QDL ferrous sulfate 325 mg (65 mg iron) tablet,delayed release (DR/EC) 325 mg PO 3XWK Rx Instructions: 325 mg PO MWF; levothyroxine 125 mcg tablet 125 mcg PO QAM Qty: 96 3RF Rx Instructions: 125 mcg PO TAKE 1 TABLET MON-SAT TAKE 2 TABS ON SUNDAYS; coenzyme Q10 [CoQ-10] 100 mg Capsule 200 mg PO QDL docusate sodium 100 mg Capsule 100 mg PO QDL PRN (Reason: Constipation) vitamin B complex Tablet 1 tab PO QDL cholecalciferol (vitamin D3) [Vitamin D3] 25 mcg (1,000 unit) Capsule 1,000 unit PO QDL Cell Hodge 1 tab PO QDL meloxicam 7.5 mg Tablet 7.5 mg PO QAM tamsulosin 0.4 mg capsule 0.8 mg PO HS Trelegy Ellipta 100-62.5-25 mcg blister with device 1 inh inhalation QAM diclofenac sodium [Voltaren] 1 % Gel TOPICAL PRN (Reason: Pain) Admission Data Admit Date/Time: 12/26/22 11:05 Attending Provider: Billy Beebe Admit Provider: Billy Beebe Primary Care Provider: Anna Shau
[2022-12-27] MEDS ORDERED: dexAMETHasone 4 MG TAB PO SCH (08:00)
[2022-12-27] MEDS: GABAPENTIN 300 MG CAP PO SCH (08:51)
[2022-12-27] MEDS: DOCUSATE SODIUM 100 MG CAP PO SCH (08:52)
[2022-12-27] MEDS: ASPIRIN 81 MG ECTAB PO SCH (08:52)
[2022-12-27] MEDS ORDERED: METOPROLOL SUCC 25MG EXT REL TAB PO SCH (09:00)
[2022-12-27] MEDS ORDERED: NON-FORMULARY MEDICATION (Fluticasone-Umeclidin-Vilanter [Trelegy Ellipta] 100-62.5-25 mcg INH SCH (09:00)
[2022-12-27] MEDS ORDERED: FLUTICASONE FUROATE 100MCG 14 PUFFS/INHALER INH SCH (09:00)
[2022-12-27] MEDS ORDERED: ATORVASTATIN 20 MG TAB PO SCH (09:00)
[2022-12-27] MEDS ORDERED: UMECLIDINIUM/VILANTEROL 62.5/25MCG 7 PUFFS/INHALER INH SCH (09:00)
[2022-12-27] MEDS ORDERED: MULTIVITAMIN TAB PO SCH (09:00)
[2022-12-27] MEDS ORDERED: FUROSEMIDE 20 MG TAB PO SCH (09:00)
[2023-01-01] MEDS ORDERED: LEVOTHYROXINE SODIUM 125 MCG TABLET PO SCH (06:30)
== END 2022-12-27 12:32 | disposition home health service (06) ==
LOC: ASU 06:21 → 3E 06:21

== ENCOUNTER 2024-08-26 06:56 | Observation (INO) ==
--- NOTE | 2024-07-10 13:35 | PAT Medication Instructions ---
Medication Instructions Date of Service July 10, 2024 Home Medications Medication Instructions Recorded diclofenac sodium 1 % topical gel 2 g topical QID PRN Pain #100 grams 05/10/23 furosemide 20 mg tablet (Lasix) 20 mg PO Q2D #45 tabs 05/10/23 gabapentin 600 mg tablet 600 mg PO HS #90 tabs 10/30/23 gabapentin 300 mg capsule 300 mg PO BID #180 caps 01/02/24 omeprazole 20 mg capsule,delayed 20 mg PO TID #270 caps 01/02/24 release atorvastatin 20 mg tablet 20 mg PO QAM #90 tabs 02/16/24 fluticasone fur. 100 mcg-umeclid 1 inh inhalation QAM #3 ea 05/16/24 62.5 mcg-vilant 25 mcg inhalat.powder (Trelegy Ellipta) levothyroxine 125 mcg tablet 125 mcg PO QAM #96 tabs 05/16/24 calcium carbonate 600 mg PO QPM coenzyme Q10 100 mg capsule (CoQ-10) 200 mg PO QPM ferrous sulfate 325 mg (65 mg iron) tablet,delayed release 325 mg PO 3XWK Cell Hodge 1 tab PO QPM cholecalciferol (vitamin D3) 25 mcg (1,000 unit) capsule (Vitamin D3) 1,000 unit PO QPM diclofenac sodium 1 % topical gel 2 g topical QID PRN furosemide 20 mg tablet (Lasix) 20 mg PO Q2D gabapentin 600 mg tablet 600 mg PO HS gabapentin 300 mg capsule 300 mg PO BID omeprazole 20 mg capsule,delayed release 20 mg PO TID tamsulosin 0.4 mg capsule 0.8 mg PO HS atorvastatin 20 mg tablet 20 mg PO QAM ascorbic acid (vitamin C) 1,000 mg capsule 1 g PO QPM fluticasone fur. 100 mcg-umeclid 62.5 mcg-vilant 25 mcg inhalat.powder (Trelegy Ellipta) 1 inh inhalation QAM levothyroxine 125 mcg tablet 125 mcg PO QAM mecobalamin (vitamin B12) 1,000 mcg chewable tablet 1,000 mcg PO QPM metoprolol succinate 25 mg tablet,extended release 24 hr 25 mg PO QPM ASK your surgeon for instructions diclofenac sodium 1 % topical gel 2 g topical QID PRN STOP taking 2 weeks before surgery (or as soon as possible if surgery is within 2 weeks) coenzyme Q10 100 mg capsule (CoQ-10) 200 mg PO QPM Cell Hodge 1 tab PO QPM DO NOT take the morning of surgery ferrous sulfate 325 mg (65 mg iron) tablet,delayed release 325 mg PO 3XWK furosemide 20 mg tablet (Lasix) 20 mg PO Q2D Take morning of surgery With a small sip of water, OTHERWISE NOTHING TO EAT OR DRINK AFTER MIDNIGHT: gabapentin 300 mg capsule 300 mg PO BID omeprazole 20 mg capsule,delayed release 20 mg PO TID atorvastatin 20 mg tablet 20 mg PO QAM fluticasone fur. 100 mcg-umeclid 62.5 mcg-vilant 25 mcg inhalat.powder (Trelegy Ellipta) 1 inh inhalation QAM levothyroxine 125 mcg tablet 125 mcg PO QAM Take evening before surgery calcium carbonate 600 mg PO QPM cholecalciferol (vitamin D3) 25 mcg (1,000 unit) capsule (Vitamin D3) 1,000 unit PO QPM gabapentin 600 mg tablet 600 mg PO HS gabapentin 300 mg capsule 300 mg PO BID omeprazole 20 mg capsule,delayed release 20 mg PO TID tamsulosin 0.4 mg capsule 0.8 mg PO HS ascorbic acid (vitamin C) 1,000 mg capsule 1 g PO QPM mecobalamin (vitamin B12) 1,000 mcg chewable tablet 1,000 mcg PO QPM metoprolol succinate 25 mg tablet,extended release 24 hr 25 mg PO QPM Other Notes If you have any questions please call us at [phone] or [phone] or [phone] or [phone]
--- NOTE | 2024-07-23 12:01 | Anesthesiology Consultation ---
Date of Service July 23, 2024 Assessment & Plan (1) Encounter for pre-operative examination: - Infectious disease screening: Per assessment on 07/23/24- No known recent infectious disease contacts or current infectious disease symptoms. - Outpatient joint assessment: Pt currently scheduled for inpatient pathway. If surgeon requests review for outpatient joint pathway, patient is not recommended candidate for outpatient joint program from anesthesia standpoint based on available information. - Cardiology visit (02/20/24): "Thoracic ascending aortic aneurysm.. Plan: 4.5 cm, stable on recent chest CT.. History of SMA dissection, aneurysm.. Mild to moderate AI.. Patient doing well from a cardiovascular standpoint. Remains active, exercising regularly, without limiting cardiac symptoms. On exam appears well perfused without signs of heart failure. Most recent chest imaging with stable ascending aortic aneurysm. Echo today to re-evaluate valvular heart disease and aorta pending. Continue ASCVD risk factor modification.. Follow Up: 1 Year" > Echo performed 02/20/24- "stable" ascending aorta diameter 4.6cm + moderately dilated ascending aorta + mild to moderate AR + mild MR. - Recent anesthesia/surgical hx: * Right TKA (12/26/22): SAB L3-4 (1 attempt) + regional at [facility] * Right index finger mass excision (08/31/23): MAC at [facility] - PCP visit (05/16/24): "Planning for Left total knee in July, due to degenerative arthritis. Will need cardiac clearance prior. B12 low at 91. Recommend B12 shot today and again in 1 month. Was instructed to start B12 1000mcg once daily. This may help with some of his previous mood changes. Repeat B12 level in 6m. Denies any significant sob, wheezing, cough. Continue inhalers." - Last PCP office visit note indicates recommendation for patient to obtain cardiac clearance prior to surgery. Workload message sent to cardiology- Awaiting response. Patient otherwise acceptable risk for surgery. Chart Review Chart Review: Patient seen in Pre Admission Testing Teaching & Discussion Pre-Anesthesia Teaching/Discussion Notes: Instructed NPO after midnight before surgery,except medications with 15 cc of water. Medication instructions provide d according to the PAT guidelines. History Surgery Operation Date: 08/26/24 10:00 Proposed Procedures p Left Total Knee Arthroplasty - Billy Beebe, Height/Weight Height: 5 ft 9 in Weight: 93.2 kg Allergies Allergy/AdvReac Type Severity Reaction Status Date / Time amoxicillin AdvReac Mild GI symptoms Verified 07/18/24 10:09 clavulanic acid AdvReac Mild GI symptoms Verified 07/18/24 10:09 nicotine patch Allergy Mild Rash Uncoded 07/10/24 11:58 Medications Home Medications Medication Instructions Recorded Confirmed Last Taken calcium carbonate 600 mg PO QPM 12/13/18 07/10/24 12/25/22 12:00 coenzyme Q10 100 mg capsule 200 mg PO QPM 02/25/20 07/10/24 12/12/22 (CoQ-10) ferrous sulfate 325 mg (65 mg 325 mg PO 3XWK 03/10/20 07/10/24 12/12/22 iron) tablet,delayed release Cell Hodge 1 tab PO QPM 09/04/20 07/10/24 12/12/22 cholecalciferol (vitamin D3) 25 1,000 unit PO QPM 09/04/20 07/10/24 12/12/22 mcg (1,000 unit) capsule (Vitamin D3) diclofenac sodium 1 % topical gel 2 g topical QID PRN Pain #100 grams 05/10/23 07/10/24 Unknown furosemide 20 mg tablet (Lasix) 20 mg PO Q2D #45 tabs 05/10/23 07/10/24 Unknown gabapentin 600 mg tablet 600 mg PO HS #90 tabs 10/30/23 07/10/24 Unknown gabapentin 300 mg capsule 300 mg PO BID #180 caps 01/02/24 07/10/24 Unknown omeprazole 20 mg capsule,delayed 20 mg PO TID #270 caps 01/02/24 07/10/24 Unknown release tamsulosin 0.4 mg capsule 0.8 mg PO HS 01/19/24 07/10/24 Unknown atorvastatin 20 mg tablet 20 mg PO QAM #90 tabs 02/16/24 07/10/24 Unknown ascorbic acid (vitamin C) 1,000 mg 1 g PO QPM 02/20/24 07/10/24 Unknown capsule fluticasone fur. 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 vascular 03/2022 does not need further monitor or f/u Chronic diastolic heart failure Chronic kidney disease (CKD), stage III (moderate) Chronic low back pain COPD (chronic obstructive pulmonary disease) "Well controlled" Disc degeneration, lumbar Edema Emphysema lung Enlarged aorta Follows with [facility] cardio Echo 01/2024: Moderately dilated ascending aorta (diameter 4.6cm), "stable" per report GERD (gastroesophageal reflux disease) Hiatal hernia History of anemia History of basal cell carcinoma Under chin, removed in office History of COVID-19 06/2020- Covid PNA, no hospitalization (treated at home) Summer 2023- no residual symptoms History of diverticulosis Hx of hemorrhoids Hx of irritable bowel syndrome Hyperlipidemia Hypertension controlled, stable per pt Hypothyroidism Memory changes Myofascial pain Neurogenic claudication due to lumbar spinal stenosis Osteoarthritis Peripheral neuropathy B/L legs Polymyalgia rheumatica Pulmonary nodules Exercise / Class Metabolic Activity III < 4 Walking/Shop/Light housework Past Family History Family History Father Prostate cancer Testicular cancer Cancer Mother Cancer Hypertension Unknown Diabetes Grandfather Colorectal cancer Other No family history of adverse response to anesthesia No family history of bleeding disorder Denies family history of Ovarian cancer Myocardial infarction Breast cancer Past Surgical History Surgical History History of cataract surgery R/L History of colonoscopy History of esophagogastroduodenoscopy (EGD) History of selective injection of anesthetic agent around lumbar nerve root lumbar nerve ablation History of tonsillectomy History of total right knee replacement Right TKA (12/26/22): SAB L3-4 (1 attempt) + regional at [facility] Hx of hand surgery Right index finger mass excision (08/31/23): MAC at [facility] S/P epidural steroid injection Past Anesthesia History No Hx of Anesthesia Complications and No Family Hx of Anesthesia Complications History of PONV No Hx of PONV and No Hx of Motion Sickness Social History Smoking Status: Former smoker tobacco type: cigarettes and pipe Do You Dip or Chew Tobacco: No Smoking End Date: Quit 2016 Hx Alcohol Use: No Hx Substance Use: No substance use type: does not use Review of Systems Patient denies chest pain, shortness of breath, fever, chills, cough, wheezing. Physical Exam Vital Signs BP 159/74 P 65 TEMP 97.9 SP02 94%RA RESP 16 Physical Full cervical extension range of motion. Full TMJ range of motion. TMD 3 finger breaths Mallampati Score III Dentition: missing sides/molars Lungs: clear throughout to auscultation Cardiac: regular rate and rhythm, no murmurs noted Spine: normal Carotid arteries: negative bruit Extremities: no LE edema Lab Results Anesthesia Preop Results Results Anesthesia Widget: WBC 7.73 K/ul (4.8-10.8) 07/23/24 Hgb 14.8 g/dl (14.0-18.0) 07/23/24 Hct 44.2 % (42.0-52.0) 07/23/24 Plt 233 K/uL (130-400) 07/23/24 Na 141 mmol/L (136-145) 07/23/24 K 4.5 mmol/L (3.5-5.1) 07/23/24 Cl 106 mmol/L (98-107) 07/23/24 CO2 27 mmol/L (21-32) 07/23/24 BUN 25 mg/dl (6-23) H 07/23/24 Creat 1.62 mg/dl (0.6-1.4) H 07/23/24 Glucose Level 92 mg/dl (70-99(Fasting)) 07/23/24 PT 11.4 Seconds (9.0-12.0) 07/23/24 PTT 31 Seconds (21-31) 07/23/24 INR 1.1 (0.9-1.1) 07/23/24 Blood Type O Positive 07/23/24 Antibody Screen NEGATIVE 07/23/24 Testing Electrocardiogram Date: 07/23/24 NSR at 65bpm. "Normal ECG" Chest X-Ray Date: 07/23/24 FINDINGS: No lines and tubes are seen. The aorta is tortuous. Cardiomegaly is seen. The lungs are clear. No evidence of pleural effusion or pneumothorax. IMPRESSION: No acute chest disease. Cardiomegaly is noted.
--- NOTE | 2024-08-22 12:26 | History & Physical Report ---
Date of Service August 22, 2024 Assessment & Plan (1) Osteoarthritis of left knee: We will proceed with a left total knee arthroplasty. Postoperatively he will be started on aspirin for DVT prophylaxis and kept overnight in the hospital for postop medical management. He plans to use energy physical therapy upon discharge. History of Present Illness Chief Complaint: Osteoarthritis of the left knee. Primary Care Provider: JUAN DIEGO Guerra Shad is a pleasant 83-year-old male who has been dealing with chronic increasing left knee pain. X-rays and clinical examination have been diagnostic for advanced arthritis of the left knee. After failed conservative treatment, he has elected to proceed with a left total knee arthroplasty.. Allergies Allergy/AdvReac Type Severity Reaction Status Date / Time amoxicillin AdvReac Mild GI symptoms Verified 07/18/24 10:09 clavulanic acid AdvReac Mild GI symptoms Verified 07/18/24 10:09 nicotine patch Allergy Mild Rash Uncoded 07/10/24 11:58 Home Medications Medication Instructions Recorded Confirmed Type calcium carbonate 600 mg PO QPM 12/13/18 08/09/24 History coenzyme Q10 100 mg capsule 200 mg PO QPM 02/25/20 08/09/24 History (CoQ-10) ferrous sulfate 325 mg (65 mg 325 mg PO 3XWK 03/10/20 08/09/24 History iron) tablet,delayed release Cell Hodge 1 tab PO QPM 09/04/20 08/09/24 History cholecalciferol (vitamin D3) 25 1,000 unit PO QPM 09/04/20 08/09/24 History mcg (1,000 unit) capsule (Vitamin D3) diclofenac sodium 1 % topical gel 2 g topical QID PRN Pain #100 grams 05/10/23 08/09/24 Rx furosemide 20 mg tablet (Lasix) 20 mg PO Q2D #45 tabs 05/10/23 08/09/24 Rx gabapentin 600 mg tablet 600 mg PO HS #90 tabs 10/30/23 08/09/24 Rx gabapentin 300 mg capsule 300 mg PO BID #180 caps 01/02/24 08/09/24 Rx omeprazole 20 mg capsule,delayed 20 mg PO TID #270 caps 01/02/24 08/09/24 Rx release tamsulosin 0.4 mg capsule 0.8 mg PO HS 01/19/24 08/09/24 History atorvastatin 20 mg tablet 20 mg PO QAM #90 tabs 02/16/24 08/09/24 Rx ascorbic acid (vitamin C) 1,000 mg 1 g PO QPM 02/20/24 08/09/24 History capsule fluticasone fur. 100 mcg-umeclid 1 inh inhalation QAM #3 ea 05/16/24 08/09/24 Rx 62.5 mcg-vilant 25 mcg inhalat.powder (Trelegy Ellipta) levothyroxine 125 mcg tablet 125 mcg PO QAM #96 tabs 05/16/24 08/09/24 Rx mecobalamin (vitamin B12) 1,000 1,000 mcg PO QPM 07/10/24 08/09/24 History mcg chewable tablet metoprolol succinate 25 mg 25 mg PO QPM 07/10/24 08/09/24 History tablet,extended release 24 hr Past Med/Surg History Problem List Rotator cuff arthropathy of right shoulder B12 deficiency Rotator cuff arthropathy of left shoulder Stenosis, spinal, lumbar Disc degeneration, lumbar Vitamin D deficiency Myofascial pain Cervical facet joint syndrome Diastolic CHF Erectile dysfunction Neurogenic claudication Encounter for pre-operative examination Peripheral neuropathy Anemia Edema Chronic diastolic heart failure Emphysema lung Lumbar facet joint syndrome (Chronic) Pulmonary nodules COPD (chronic obstructive pulmonary disease) (Acute) Hemorrhoids (Acute) Male erectile disorder of organic origin (Acute) Seborrheic keratosis (Acute) Allergic rhinitis (Acute) Aneurysm artery, superior mesenteric (Acute) Diverticulosis (Acute) Gastroesophageal reflux disease without esophagitis (Acute) Hypertension (Acute) Hypothyroidism (Acute) Irritable bowel syndrome (Acute) Multilevel degenerative disc disease (Acute) Polyarthritis, inflammatory (Acute) Polyneuropathy (Acute) Medical History Osteoarthritis Pulmonary nodules Myofascial pain Neurogenic claudication due to lumbar spinal stenosis Peripheral neuropathy B/L legs Memory changes Hx of irritable bowel syndrome Hx of hemorrhoids GERD (gastroesophageal reflux disease) Emphysema lung Edema Chronic kidney disease (CKD), stage III (moderate) Enlarged aorta Follows with [facility] cardio Echo 01/2024: Moderately dilated ascending aorta (diameter 4.6cm), "stable" per report History of diverticulosis Disc degeneration, lumbar COPD (chronic obstructive pulmonary disease) "Well controlled" Chronic low back pain Chronic diastolic heart failure Allergic rhinitis Aneurysm artery, 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 that was monitored by [facility] vascular (Dr Damon) x years Per [facility] vascular 03/2022 does not need further monitor or f/u History of anemia History of basal cell carcinoma Under chin, removed in office History of COVID-19 06/2020- Covid PNA, no hospitalization (treated at home) Summer 2023- no residual symptoms Hiatal hernia Hypothyroidism Hyperlipidemia Hypertension controlled, stable per pt Polymyalgia rheumatica Surgical History Hx of hand surgery Right index finger mass excision (08/31/23): MAC at [facility] History of total right knee replacement Right TKA (12/26/22): SAB L3-4 (1 attempt) + regional at [facility] History of esophagogastroduodenoscopy (EGD) S/P epidural steroid injection History of selective injection of anesthetic agent around lumbar nerve root lumbar nerve ablation History of tonsillectomy History of colonoscopy History of cataract surgery R/L Family History Father Prostate cancer Testicular cancer Cancer Mother Cancer Hypertension Unknown Diabetes Grandfather Colorectal cancer Other No family history of adverse response to anesthesia No family history of bleeding disorder Denies family history of Ovarian cancer Myocardial infarction Breast cancer Social History Smoking Status: Former smoker Tobacco Type: Pipe Age Started Using Tobacco: 18; Age Quit Using Tobacco: 78; packs per day: 0; Second Hand Exposure: Yes (hx in the workplace); Do You Dip or Chew Tobacco: No; Hx Alcohol Use: No Hx Substance Use: No Preferred Language: Afghan Communication Ability: Effective Visual Impairment: No Limitations Hearing Ability: Hard of Hearing 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 Physical Exam On physical examination of the left knee, he has a trace effusion. He is good range of motion 0 to 120 degrees. He has tenderness palpation of the distal femoral condyles.. Constitutional WD/WN, vitals as above Eyes PERRL, conjunctivae normal, anicteric sclerae ENMT external ear and nose normal, oropharynx normal Neck trachea midline, no thyromegaly Respiratory normal respiratory effort Cardiovascular RRR, no murmur, no edema Gastrointestinal (Abdomen) normal bowel sounds, soft, nontender, no hepatosplenomegaly Psychiatric A+Ox3, euthymic affect Results & Data Results & Data Laboratory Results . Diagnostic Findings X-rays of the left knee show advanced osteoarthritis with joint space narrowing, osteophyte formation, and [id number] articulation. PG Care Time/CCT Total # of Minutes Spent Total Time Spent with Patient: Total time spent is greater than 50% in coordination of care (as documented) at patient's floor/unit and/or counseling patient: Coding Level of Care Code None Diagnoses Osteoarthritis of left knee M17.12
[~2024-08-26 06:56] MED LIST changes: -ACETAMINOPHEN 500 MG TAB PO SCH; +ATROPINE SULFATE 0.1 MG/ML 10ML SYR IV PRN; +BUPIVACAINE 0.25% PF 30 ML VIAL ONE; +BUPIVACAINE 0.5 % 5 MG/1 ML PF 10ML VIAL ONE; -FAMOTIDINE 20 MG TAB PO SCH; -GABAPENTIN 300 MG CAP PO SCH; -LR 60ML/HR IV SCH; +ONDANSETRON INJ 2 MG/ML 2 ML VIAL IV PRN; -ORTHO JOINT MIX INFIL SCH; -TRANEXAMIC ACID 1,000 MG **IV Intra-op IV SCH; -TRANEXAMIC ACID 1,000 MG **IV Pre-op IV SCH; -ceFAZolin 2000MG 2,000 MG/15 ML SYR IV SCH; -dexAMETHasone 4 MG TAB PO SCH; +ePHEDrine sulfate 50 MG/ML AMP IV PRN; +fentaNYL citrate PF 100 MCG/2 ML VIAL IV PRN
[2024-08-26] MEDS: LR 60ML/HR IV SCH (07:45)
[2024-08-26] MEDS: GABAPENTIN 300 MG CAP PO SCH ×2 (07:45→13:27)
[2024-08-26] MEDS: LR 500ML BOLUS, THEN 15ML/HR IV SCH (07:55)
[2024-08-26] MEDS: dexAMETHasone**PF** 10 MG/ML VIAL IV SCH (08:02)
[2024-08-26] MEDS: FAMOTIDINE 20 MG TAB PO SCH (08:02)
[2024-08-26] MEDS: ACETAMINOPHEN 500 MG TAB PO SCH ×2 (08:02→13:27)
[2024-08-26] MEDS ORDERED: ONDANSETRON INJ 2 MG/ML 2 ML VIAL ONE (08:06)
[2024-08-26] MEDS ORDERED: PROPOFOL IV EMULSION 10 MG/ML 20 ML VIAL IV ONE (08:06)
[2024-08-26] MEDS ORDERED: LIDOCAINE 2% 2 ML VIAL/AMP(20MG/ML) INFIL ONE (08:06)
--- NOTE | 2024-08-26 08:06 | History & Physical Bridge Note ---
Date of Service August 26, 2024 History & Physical Bridge Note I have examined the patient, reviewed the History & Physical and in the interval since the performance of the History & Physical I have noted the following changes of clinical significance: no changes noted
[2024-08-26] MEDS ORDERED: MIDAZOLAM HCL 1 MG/ML 2ML VIAL ONE (08:07)
[2024-08-26] MEDS ORDERED: fentaNYL citrate PF 100 MCG/2 ML VIAL ONE (08:07)
[2024-08-26] MEDS: TRANEXAMIC ACID 1,000 MG **IV Pre-op IV SCH (08:50)
[2024-08-26] MEDS ORDERED: DROPERIDOL 5 MG/2 ML VIAL ONE (09:16)
[2024-08-26] MEDS ORDERED: PHENYLEPHRINE HCL 10 MG/ML VIAL ONE (09:38)
[2024-08-26] MEDS: ROPIV 0.5% 246mg, Ketorolac 30mg, EPINEPHrine 0.5mg in NSS INFIL SCH (09:59)
--- NOTE | 2024-08-26 10:22 | Operative Report ---
PG Post Operative Report Pre & Post Diagnosis Operation Date: 08/26/24 09:00 Pre-Op Diagnosis: Left Knee Arthritis Post-Op Diagnosis: Left Knee Arthritis I identified the patient and participated in the time-out.: Yes Procedure Operation Date: 08/26/24 09:00 Actual Procedures p Left Total Knee Arthroplasty(Left) - Billy Beebe DO Surgeon Billy Beebe DO Ship Steward Donell Osorio PA-C Estimated Blood Loss 50 Findings Consistent with Post-Op Diagnosis Specimens Left femoral and tibial bone Description of Procedure Implants used: I used a Sharon Persona total knee arthroplasty system with a size 6 standard femur, E tibia, 31 oval patella, and a size 10 medial congruent polyethylene bearing. All components were cemented in place with Biomet cement. Shad arrived [facility] for the above procedure. He was seen in the preoperative holding area and the operative extremity was identified and signed. He was given a preoperative antibiotic, TXA, a spinal anesthetic and an adductor nerve block. He was taken back to the operating room and laid on the table in supine position. He was given basic sedation. The operative knee was then prepped and draped in sterile fashion. A timeout was done, and the patient and the operative extremity was properly identified. A midline incision was made directly over the patella. Dissection was taken down to the extensor mechanism. A medial parapatellar arthrotomy was used. The medial retinaculum was released and the fat pad was mostly excised. The knee was flexed and the ACL, PCL, and meniscus were removed. A drill was sent down the center of the femoral canal followed by an intramedullary elio. Off that elio a distal femoral cutting block was placed. 9 mm was resected off the distal femur at 5 of valgus. A posterior referencing AP sizing guide was then placed on the distal femur. The femur measured to be a size 6. 2 drill holes were placed in 3 of external rotation. A 4-in-1 cutting block was then impacted into place. Anterior, posterior, and chamfer cuts were then made. The proximal tibia was then exposed. An external tibial alignment guide was placed. A tibial cut guide was then anchored in place and the proximal tibia was then resected. The posterior aspect of the knee was then opened up and any additional meniscus fragments and osteophytes were removed. The tibia measured to be a size E. The tibial plate was then placed in the appropriate rotation and the tibia was drilled and punched. Trial components were then placed. I used a size 10 medial congruent polyethylene insert. The knee was brought through a full range of motion and felt to be stable. The peg holes for the femoral component were then drilled. The patella was then everted and 9 mm was resected off the posterior aspect of the patella. The patella measured to be a size 31 oval. 3 peg holes were then drilled. A trial patella was placed. The knee was once again brought through a full range of motion and felt to be stable. Trial components were then removed. The surrounding soft tissues were injected with 100 cc of an orthopedic pain control cocktail. All components were then cemented into place with Biomet cement. The final polyethylene insert was then snapped into place. Once cement was dry the tourniquet was deflated. Hemostasis was obtained. A dilute betadyne lavage was then done for 3 minutes. The joint was then irrigated with normal saline solution. The medial parapatellar arthrotomy was then closed with #1 Vicryl suture. The skin was closed with 2-0 Vicryl, 3-0V lock suture, and juan. A soft compressive dressing was placed. He was then transferred to a hospital bed and taken to the postanesthesia care unit in stable condition. He tolerated the procedure well. Donell Osorio PA-C, was present for the entire procedure. He was critical for patient positioning, prepping, draping, retraction exposure, wound closure and application of sterile dressing. I attest to the content of the Intraoperative Record and any orders documented therein. Any exceptions are noted below.
--- NOTE | 2024-08-26 10:59 | XRay Report ---
XR knee LT 1 or 2V routine CLINICAL HISTORY: Surgical Post Op COMPARISON: 01/11/2024 FINDINGS: Interval left knee prosthesis shows no hardware complication. There is expected soft tissu e gas. Skin juan are present. IMPRESSION: Unremarkable postoperative exam. ACT 112: Negative or not required by law. Electronically signed by: Luis López M.D. 08/26/2024 10:57 AM
[2024-08-26] MEDS ORDERED: HYDROmorphone INJ 0.5 MG/0.5 ML SYR IV PRN (12:52)
[2024-08-26] MEDS ORDERED: bisacodyL 10 MG SUPP PR PRN (12:52)
[2024-08-26] MEDS ORDERED: NALOXONE HCL 0.4 MG/1 ML VIAL/CARP IV PRN (12:52)
[2024-08-26] MEDS ORDERED: ONDANSETRON INJ 2 MG/ML 2 ML VIAL IV PRN (12:52)
[2024-08-26] MEDS ORDERED: MAGNESIUM HYDROXIDE SUSP 30 ML UDC PO PRN (12:52)
[2024-08-26] MEDS ORDERED: oxyCODONE HCL IR 5 MG TAB (IMMEDIATE RELEASE) PO PRN (12:52)
[2024-08-26] MEDS ORDERED: METOCLOPRAMIDE HCL INJ 5 MG/ML 2 ML VIAL IV PRN (12:52)
[2024-08-26] MEDS: ORTHO JOINT ANESTHETIC ONE (13:02)
[2024-08-26] MEDS: ceFAZolin 2000MG 2,000 MG/15 ML SYR IV SCH ×2 (13:03→17:52)
[2024-08-26] MEDS: TRANEXAMIC ACID 1,000 MG **IV Intra-op IV SCH (13:03)
[2024-08-26] MEDS: FUROSEMIDE 20 MG TAB PO SCH (13:27)
[2024-08-26] MEDS: KETOROLAC TROMETHAMINE 15 MG/ML VIAL IV SCH (13:27)
[2024-08-26] MEDS: PANTOprazole 40 MG TAB PO SCH (13:28)
--- NOTE | 2024-08-26 14:16 | Anesthesiology Progress Note ---
Date of Service August 26, 2024 Anesthesia Post Procedure Vital Signs Vital Signs: Temp Pulse Pulse Pulse Resp BP BP 08/26/24 13:55 36.4 C L 84 16 136/69 08/26/24 13:16 36.3 C L 81 16 127/62 08/26/24 12:45 08/26/24 12:45 36.4 C L 79 16 114/59 L 08/26/24 12:30 75 15 115/58 L 08/26/24 12:20 36.5 C 76 13 117/57 L 08/26/24 12:10 75 14 101/60 08/26/24 12:00 75 14 107/58 L 08/26/24 11:50 77 12 101/51 L 08/26/24 11:40 77 12 102/53 L 08/26/24 11:30 36.4 C L 82 14 105/51 L 08/26/24 11:20 76 11 L 103/53 L 08/26/24 11:10 78 13 104/51 L 08/26/24 11:00 80 14 100/52 L 08/26/24 10:50 81 13 103/49 L 08/26/24 10:41 36.1 C L 88 17 94/49 L 08/26/24 07:35 36.5 C 69 20 145/74 H Pulse Ox O2 Del Method O2 Flow Rate 08/26/24 13:55 96 Nasal Cannula 2 08/26/24 13:16 95 Nasal Cannula 2 08/26/24 12:45 Nasal Cannula 2 08/26/24 12:45 97 Nasal Cannula 2 08/26/24 12:30 94 Nasal Cannula 3 08/26/24 12:20 93 Nasal Cannula 3 08/26/24 12:10 94 Nasal Cannula 3 08/26/24 12:00 94 Nasal Cannula 3 08/26/24 11:50 97 Nasal Cannula 3 08/26/24 11:40 97 Nasal Cannula 3 08/26/24 11:30 96 Nasal Cannula 4 08/26/24 11:20 96 Nasal Cannula 4 08/26/24 11:10 91 Nasal Cannula 3 08/26/24 11:00 93 Nasal Cannula 3 08/26/24 10:50 93 Room Air 08/26/24 10:41 98 Oxymask 4 08/26/24 07:35 96 Room Air Transfer of Care Handoff Completed per policy Notes Mental Status: alert / awake / arousable Patient Amnestic to Procedure: Yes Nausea / Vomiting: adequately controlled Pain: adequately controlled Airway Patency, RR, SpO2: stable & adequate BP & HR: stable & adequate Hydration State: stable & adequate Neuraxial Anesthesia: was administered and sensory block is resolving Anesthetic Complications: no major complications apparent and Pt Satisfied with anesthetic care
[2024-08-26] MEDS ORDERED: ceFAZolin 1000MG 1,000 MG/7.5 ML SYR IV SCH (16:45)
[2024-08-26] MEDS: TAMSULOSIN HCL 0.4 MG CAP PO SCH (20:06)
[2024-08-26] MEDS: ASPIRIN 81 MG ECTAB PO SCH (20:06)
[2024-08-26] MEDS: SENNA 8.6 MG TAB PO SCH (20:06)
[2024-08-26] MEDS: DOCUSATE SODIUM 100 MG CAP PO SCH (20:07)
[2024-08-26] MEDS: GABAPENTIN 600 MG TAB PO SCH (20:07)
[2024-08-26] MEDS: METOPROLOL SUCC 25MG EXT REL TAB PO SCH (20:08)
[2024-08-27 03:22] VITALS: O2SAT 93
[2024-08-27] MEDS: LEVOTHYROXINE SODIUM 125 MCG TABLET PO SCH (05:45)
[2024-08-27 07:45] VITALS: BP 106/50; PULSE 62; RESP 16; TEMP 98.1
[2024-08-27] MEDS: dexAMETHasone 4 MG TAB PO SCH (07:58)
[2024-08-27] MEDS: ATORVASTATIN 20 MG TAB PO SCH (07:58)
[2024-08-27] MEDS: MULTIVITAMIN TAB PO SCH (07:58)
--- NOTE | 2024-08-27 12:12 | Orthopedic Progress Note ---
Date of Service August 27, 2024 Assessment & Plan (1) Status post left knee replacement: Assessment: Status post left total knee arthroplasty. Plan: Overall, he is doing quite well today with good pain control of the left knee. He worked with physical therapy later this morning to work on ambulation and range of motion exercises. He is on aspirin for DVT prophylaxis. He can be discharged home later this morning pending formal physical therapy evaluation and recommendations. He will follow-up with orthopedics in 2 weeks for postoperative management. Dressings can be changed today prior to discharge. He verbalized understanding and agrees with this plan. Subjective . Shad was seen this morning resting comfortably in no apparent distress. He notes that his pain is well-controlled to his left knee. He has been up and out of bed without any significant issues. He has yet to work with physical therapy today. He denies any concerns with surgical incision site. Denies any active bleeding, discharge, or signs of infection. He denies any other concerns today. Review of Systems All systems reviewed & are unremarkable except as noted in HPI & below. Physical Exam . On physical examination of the left knee, his dressings are in place, clean, dry, and intact with no signs of active bleeding, discharge, or signs of infection. His leg is out in full extension. He has limited range of motion secondary to postoperative stiffness and soreness. He does have tenderness to palpation adjacent to the surgical site. Calf soft nontender to palpation. Negative Homans' sign. Intact plantarflexion and dorsiflexion of the left ankle. +2 DP and PT pulses. Less than 2-second capillary refill. Normal sensation. Neurovascular intact. Results & Data Results & Data Laboratory Results . Diagnostic Findings . Knee X-Ray 08/26/24 10:44 XR knee LT 1 or 2V routine CLINICAL HISTORY: Surgical Post Op COMPARISON: 01/11/2024 FINDINGS: Interval left knee prosthesis shows no hardware complication. There is expected soft tissue gas. Skin juan are present. IMPRESSION: Unremarkable postoperative exam. ACT 112: Negative or not required by law. Electronically signed by: Luis López M.D. 08/26/2024 10:57 AM PG Care Time/CCT Total # of Minutes Spent Total Time Spent with Patient: Total time spent is greater than 50% in coordination of care (as documented) at patient's floor/unit and/or counseling patient: Coding Level of Care Code 84807 Post Operative Follow-Up Diagnoses Status post left knee replacement Z96.652
--- NOTE | 2024-08-27 12:13 | Discharge Summary ---
Date of Service August 27, 2024 Admission HPI (Per Admitting) Shad is a pleasant 83-year-old male who has been dealing with chronic increasing left knee pain. X-rays and clinical examination have been diagnostic for advanced arthritis of the left knee. After failed conservative treatment, he has elected to proceed with a left total knee arthroplasty.. Admission Exam (Per Admitting) On physical examination of the left knee, he has a trace effusion. He is good range of motion 0 to 120 degrees. He has tenderness palpation of the distal femoral condyles.. Principal Diagnosis Same as "Discharge Diagnosis" noted below under Discharge Instructions. Discharge Exam . On physical examination of the left knee, his dressings are in place, clean, dry, and intact with no signs of active bleeding, discharge, or signs of infection. His leg is out in full extension. He has limited range of motion secondary to postoperative stiffness and soreness. He does have tenderness to palpation adjacent to the surgical site. Calf soft nontender to palpation. Negative Homans' sign. Intact plantarflexion and dorsiflexion of the left ankle. +2 DP and PT pulses. Less than 2-second capillary refill. Normal sensation. Neurovascular intact. Discharge Data Procedures Performed Operation Date: 08/26/24 09:00 Actual Procedures p Left Total Knee Arthroplasty(Left) - Billy Beebe DO Ordered Studies 08/26/24 05:00 US - OR guided needle placemen Routine Hospital Course (1) Status post left knee replacement: On August 26, 2024 Shad arrived at [facility] and underwent a left total knee arthroplasty performed by Dr. Beebe with no complications. He had a spinal anesthetic. Postoperatively, he was started on aspirin for DVT prophylaxis and transferred to the general orthopedic floor in stable condition. His hospital course was uneventful. On postoperative day #1, his vital signs were stable and his pain was well-controlled. He participated well with physical therapy working on ambulation and range of motion exercises. He was then discharged home in stable condition. He will follow-up with orthopedics in 2 weeks for continued postoperative management or sooner if needed. PG Care Time/CCT Total # of Minutes Spent Total Time Spent with Patient: Total time spent is greater than 50% in coordination of care (as documented) at patient's floor/unit and/or counseling patient: Discharge Plan Discharge Items Patient Disposition: Home - Home Health Services Reason For Visit: Left Knee Arthritis Discharge Diagnosis: Same Activity: Per Instructions section Non-emergency contact: Surgeon Call non-emergency contact if: your temperature is above 101.5, your wound has increased redness, your wound has increased drainage and your wound pain has increased Follow-up/Referrals: Anna Sahu CRNP [Primary Care Provider] - Diet: Regular Addtl Attending Provider Instructions: Activity and Therapy Recommendations: * If you are using [facility] then therapy will be provided at your home until they feel you have accomplished all of your goals. * If you are using [facility] then Physical Therapy will be provided until they feel you are ready to start Outpatient Physical Therapy. * If you are not using home therapy then Outpatient Physical Therapy should start about 3-5 days from your day of surgery. Therapy will last about 6-10 weeks * It is important not to put a pillow under your knee when you are relaxing or sleeping. It is just as important to make sure you are getting your knee perfectly straight as it is to regain your knee bend. * You were shown a series of exercises in the hospital. Do these exercises three times each day including the exercises you were shown in physical therapy. * Get up and walk several times each day. For the first four weeks, try not to stand or walk for more than one hour at a time. If you do stand or walk for more than one hour, you will not hurt anything, but your leg will likely swell. * As you feel comfortable, you may change from the walker or crutches to a cane and then to independent walking. Medications: * Narcotic You will likely be sent home from the hospital with a prescription for the narcotic pain medication that worked best throughout your stay. * Cefadroxil -take the antibiotic twice a day for 10 days to help prevent infection. * Aspirin Most patients will be required to take Aspirin 81mg twice a day for 6 weeks after surgery. This is obtained [id number] and a prescription is not necessary. * Other medications may be prescribed for specific circumstances. If you have any questions, please call the office at . * Resume previous home medications unless otherwise instructed TEDs/Elastic Stockings: The white elastic stockings help limit swelling and prevent blood clots from forming in your legs.~ The more you wear them, the more they work. Wear them for six weeks. Dressing Care: The dressing can be changed after physical therapy on postop day #1. Daily dry dressing changes for a few days, especially if the incision is still draining some. If the incision is not draining then you may leave the juan open to air. If there is a little bit of drainage or if the juan are getting stuck on your clothing then cover the incision with a dry dressing. The juan will be removed at your 2 week follow-up appointment. Showering: You may shower 5 days from the day of surgery as long as the incision is no longer draining. You may shower with the juan exposed. Let soapy water run over the juan and pat them dry. Do not scrub or soak the incision. Diet: You may resume your previous diet. Things To Watch For: * Drainage from the incision site that occurs more than one week after your surgery. * Increased redness at the incision site. * Fever above 102 degrees Fahrenheit. * Unusual chest pain or shortness of breath. * Call [facility] at with any of the above problems Follow-Up Visit: Follow-up with Dr. Beebe's office 2-3 weeks after your day of surgery. We will remove your juan and answer any questions. If you have any additional questions or concerns, Dr Beebe is usually in the office at the same time and will be available An appointment was probably scheduled when you signed-up for surgery in the office. If you have any questions call Office Instructions: More detailed instructions as well as Frequently Asked Questions were provided in a folder by our office when you signed-up for surgery. Please review these instructions when you get home. If you have any further questions or concerns, please feel free to call the office at [phone] Pending Studies at Discharge: No Stand-Alone Forms: [facility], Smoking Cessation Medications and DC Order Prescriptions: New aspirin 81 mg Tablet,Delayed Release (Dr/Ec) 81 mg PO BID Qty: 0 0RF oxycodone 5 mg Tablet 5 mg PO Q6H PRN (Reason: pain) Qty: 30 0RF cefadroxil 500 mg capsule 500 mg PO BID 10 Days Qty: 20 0RF Continued gabapentin 600 mg tablet 600 mg PO HS Qty: 90 3RF gabapentin 300 mg capsule 300 mg PO BID Qty: 180 3RF Rx Instructions: QAM and 1200 omeprazole 20 mg capsule,delayed release(DR/EC) 20 mg PO TID Qty: 270 3RF calcium carbonate 600 mg calcium (1,500 mg) tablet 600 mg PO QPM ferrous sulfate 325 mg (65 mg iron) tablet,delayed release (DR/EC) 325 mg PO 3XWK Rx Instructions: 325 mg PO MWF; furosemide [Lasix] 20 mg tablet 20 mg PO Q2D Qty: 45 3RF diclofenac sodium 1 % gel 2 g TOPICAL QID PRN (Reason: Pain) Qty: 100 3RF ascorbic acid (vitamin C) 1,000 mg capsule 1 g PO QPM tamsulosin 0.4 mg capsule 0.8 mg PO HS Trelegy Ellipta 100-62.5-25 mcg blister with device 1 inh inhalation QAM Qty: 3 3RF levothyroxine 125 mcg tablet 125 mcg PO QAM Qty: 96 3RF Rx Instructions: 125 mcg PO TAKE 1 TABLET MON-MON TAKE 2 TABS ON SUNDAYS; coenzyme Q10 [CoQ-10] 100 mg Capsule 200 mg PO QPM cholecalciferol (vitamin D3) [Vitamin D3] 25 mcg (1,000 unit) Capsule 1,000 unit PO QPM Cell Hodge 1 tab PO QPM metoprolol succinate 25 mg tablet extended release 24 hr 25 mg PO QPM mecobalamin (vitamin B12) 1,000 mcg tablet,chewable 1,000 mcg PO QPM atorvastatin [Lipitor] 20 mg tablet 20 mg PO QAM Admission Data Admit Date/Time: 08/26/24 12:48 Attending Provider: Billy Beebe Admit Provider: Billy Beebe Primary Care Provider: Anna Sahu Other Interventions: Discharge Summary Assessment (RN) Last Done: 08/27/24 09:04
[2024-09-01] MEDS ORDERED: LEVOTHYROXINE SODIUM 125 MCG TABLET PO SCH (06:30)
== END 2024-08-27 11:24 | disposition home health service (06) ==
LOC: ASU 06:56 → 3E 06:56